=== PATIENT | male | born 1985 | race Caucasian/White ===

== ENCOUNTER 2017-10-09 08:26 | Emergency (ER) | payer MEDICAID, SELFPAY ==
[2017-10-09 08:26] VITALS: BP 142/80; PULSE 104; RESP 16; TEMP 36.7; O2SAT 100; BMI 20.3
--- NOTE | 2017-10-09 08:46 | ED.RN ---
n/v over the last couple of weeks but not today.
[2017-10-09] MEDS: Ibuprofen 600 MG Tablet PO (08:51)
--- NOTE | 2017-10-09 08:58 | ED.DCSUM_ITS ---
- ER Visit Summary Date of Service: 10/09/17 Chief Complaint: Intermittent right-sided abdominal pain for 2-3 weeks History of Present Illness: The patient is a 32 M who presents with intermittent right-sided abdominal pain for the past 2-3 weeks. He denies any precipitant, alleviating or exacerbating factors. He denies fever, chills night sweats. He does report a 3 pound weight loss over the past month. The weight loss is unintentional. There is been no change in his routine. He denies any myalgias arthralgias or bone pain. He denies headache, photophobia or any ocular, visual or auditory symptoms. He denies trouble speech or swallowing. He denies any cardiac or respiratory symptoms. He is complained of intermittent nausea. He denies any back pain or flank pain. He denies dysuria, frequency, urgency or hematuria. Denies any scrotal or testicular pain. He denies evidence of a bulge or hernia. Upon further questioning was determined that his pain is worse after he stands for hours. He also reported diarrhea 2 weeks ago for 24 hours. There is no blood or mucus. There is a family history of inflammatory bowel disorder. He denies any skin lesions. Denies history of trauma. He is a smoker one pack per day. Physical Examination: Blood pressure is elevated 142/80. Heart rate 104. Vital signs otherwise unremarkable. Head is atraumatic normocephalic. Pupils are equal round reactive. Extraocular muscles are intact. TMs are pearly white with landmarks noted. Nares patent with no drainage. Posterior pharynx without erythema or exudate. Uvula is midline. There is no dysphonia or dysphasia. Trachea is midline. There is no stridor with auscultation of the neck. Heart is regular without murmur, gallop or rub. S1 and S2 are normal. Lungs are clear to auscultation with good movement of air bilaterally. Abdomen is soft and nontender. There is no guarding or peritoneal findings. There is no palpable pulsatile mass. There is no abdominal bruit. Snow sign is negative. Negative Rovsing sign. There is no evidence of inguinal or umbilical hernia. There is no CVA tenderness either side. He is alert oriented with a nonfocal neurologic exam. There is no swelling or edema of the lower extremities. Test Results: BC is remarkable for H&H 9.3 and 29.8. Electrolyte panel reveals slight decrease in potassium at 3.3. BUN/creatinine are normal. Emergency Department Course and Treatment: To evaluate patient's intermittent right-sided abdominal pain with history of weight loss and family history of inflammatory bowel disorder a BMP, CBC and UA were obtained. Treatment Plan: Because patient has unintentional weight loss with abdominal pain and anemia of unknown cause a CT of the abdomen was obtained to evaluate his discomfort and specifically to evaluate for neoplasm. CT reveals a 2 mm renal calculus that would not explain his pain and significant amount of fecal stasis. This may explain his pain but would not explain his unintentional weight loss or anemia. Disposition: Discharged to home with follow-up in 1 week with PCP Impression: 1. Right-sided abdominal pain unknown etiology 2. Anemia unknown etiology 3. Unintentional weight loss unknown etiology 4. Tobacco use This note was generated with [employer] software. It may contain incorrect words, spelling, and punctuation that were not noted in review of the chart prior to signing ED Disposition - Plan for ED Patient: Disposition: Home or Assisted Living Chief Complaint: Flank Pain Instructions: ED Abdominal Pain Unkn Cause Male, ED Anemia Type Not Specified Referrals: Edward Osman DO [STAFF PHYSICIAN] - 1 Week
[2017-10-09 09:03] LABS: Bacteria 0 SEEN /hpf (None Seen); Red Blood Cells-Urine 0 SEEN /hpf (0-5); Squamous Epithelial Cells - UA 0 SEEN /hpf (0-5)
[2017-10-09 09:10] LABS: Absolute Lymphocyte Count 1.31 X10^3/ul (0.83-4.51); Absolute Neutrophil Count 3.9 X10^3/uL (2.0-7.7); Basophil# 0.05 X10^3/uL; Basophil% 0.8 % (0-1); Eosinophil# 0.07 X10^3/uL; Eosinophils% 1.2 % (0-5); Hematocrit 29.8 % (40-54); Hemoglobin 9.3 g/dl (13.0-16.5); Lymphocyte # 1.31 X10^3/ul (4.0); Lymphocyte % 21.9 % (19-41); Mean Corp Hgb Conc 31.2 g/gl (32-36); Mean Corpuscular Hgb 27.1 pg (27.0-32.0); Mean Corpuscular Volume 86.9 fL (80-94); Mean Platelet Vol. 9.7 fl (6.2-12.0); Monocyte% 10.1 % (0-10); Neutrophil # 3.93 X10^3/uL (2.7-7.7); Neutrophil % 65.8 % (47-70); Platelet Count 390 K/mm3 (150-450); RBC Distribution Width CV 13.6 % (11.6-14.6); RBC Distribution Width SD 42.2 fl (35.1-43.9); Red Blood Count 3.43 M/mm3 (4.6-6.2)
[2017-10-09 09:12] LABS: POSITIVE COUNT NO; POSITIVE DIFFERENTIAL NO; POSITIVE MORPHOLOGY NO
[2017-10-09 09:17] LABS: Anion Gap 7 (5-15); BUN 10 mg/dL (7-18); BUN/Creat Ratio 12.2 RATIO (10-20); Calcium,Total 8.5 mg/dL (8.5-10.1); Chloride 108 mmol/L (98-107); Creatinine, Serum 0.82 mg/dL (0.70-1.30); EST Glomerular Filtration Rate 114 mL/min (>60); Est Glom Filt Rate - Afr Amer 138 mL/min (>60); Estimated Creatinine Clearance 123.31 ml/min; Glucose 86 mg/dL (74-106); Potassium 3.3 mmol/L (3.5-5.1); Sodium Level 143 mmol/L (136-145)
--- NOTE | 2017-10-09 09:23 | CT_ITS ---
STUDY: CT ABDOMEN AND PELVIS WITH CONTRAST REASON FOR EXAM: Male, 32 years old. 2 week history of right flank pain with weight loss and anemia. RADIATION DOSAGE (If Supplied By Facility): CTDIvol = ( 10.87 ) mGy, DLP = ( 417.06 ) mGycm TECHNIQUE: Transaxial images were obtained from the dome of the diaphragm to the symphysis pubis without oral contrast. 100 ml of Isovue 300 contrast was administered. Sagittal and coronal images were reconstructed. Individualized dose optimization techniques were used for this CT. COMPARISON: None. FINDINGS: The visualized lung bases are unremarkable. The visualized portions of the heart are within normal limits. Normal liver. The gallbladder is contracted. Normal spleen. Normal pancreas. Normal bilateral adrenal glands. 2 mm calculus in the upper pole calyx of the right kidney. Normal left kidney. Large amount of residual food particles seen within the stomach. Normal small intestine. Large amount of fecal material is seen in the colon. The appendix is visualized and appears normal. Normal abdominal aorta. Normal inferior vena cava. Normal retroperitoneum. Normal urinary bladder. Normal abdominal wall. Normal osseous structures. CT/Abdomen/Pelvis W IV Cont ONLY IMPRESSION: 2 mm calculus in the upper pole calyx of the right kidney. Large amount of fecal material is seen throughout the colon. Electronically Signed: Neil Edgar MD at 10:33 EDT Tel [phone], Service support ,
[2017-10-09 09:34] LABS: Color, Urine Yellow (Yellow); Glucose, Dipstick Normal (Normal); Ketone-Dipstick 5 mg/dl (Negative); Leukocyte Esterase-Dipstick 100 /ul (Negative); Nitrite-Dipstick Negative (Negative); Occult Blood-Urine Negative /ul (Negative); Protein-Dipstick 30 mg/dl (Negative); Specific Gravity, Urine 1.025 (1.002-1.030); Urine Bilirubin Dipstick Negative (Negative); Urine Clarity Sl. Cloudy (Clear); Urine Urobilinogen 1 mg/dl (Normal)
[2017-10-09 09:35] LABS: White Blood Cells 5-10 SEEN /hpf (0-5)
[2017-10-09 09:36] LABS: Mucous, Urine RARE /hpf (<or=2+)
[2017-10-09 10:30] VITALS: BP 145/73; PULSE 92; RESP 14; O2SAT 98
[2017-10-09 11:14] VITALS: BP 122/76; PULSE 59; RESP 18; O2SAT 98
== END 2017-10-09 11:15 | disposition home or self-care (01) ==
PROVIDERS: Emergency Provider Emergency Medicine; Family Provider Family Medicine; PCP Family Medicine
DX: R10.9 Unspecified abdominal pain (principal); D64.9 Anemia, unspecified; R63.4 Abnormal weight loss; Z72.0 Tobacco use; N20.0 Calculus of kidney
CPT/HCPCS: 74177; 80048; 81001; 85025; 99284; Q9967; A4216

== ENCOUNTER 2018-09-14 09:36 | Emergency (ER) | payer SELFPAY ==
[2018-09-14 09:37] VITALS: BP 143/70; PULSE 97; RESP 17; TEMP 36.5; O2SAT 99; BMI 21.2
--- NOTE | 2018-09-14 09:44 | RAD_ITS ---
STUDY: X-RAY - LEFT SHOULDER REASON FOR EXAM: Male, 33 years old. Pain TECHNIQUE: 4 view(s) of the shoulder. COMPARISON: None. FINDINGS: There is no evidence of fracture or dislocation. There are no significant degenerative changes. There are no radiodense foreign bodies. RAD/Shoulder min 2 Views IMPRESSION: No fracture or dislocation. Electronically Signed: Ant Harrington, at 10:24 EDT Tel , Service support ,
--- NOTE | 2018-09-14 09:56 | ED.VISSUMM ---
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 through repetitive motions with his left upper extremity indicates he has pain over the anterior left shoulder, he suffered no direct trauma he has no numbness weakness paresthesias, he has no symptoms of joint pain or other complaints, he indicates his pain is worse when he tries to forward elevate but when he actually gets the arm up he actually feels better, he has no numbness weakness or paresthesias no direct trauma no prior history no other complaints Physical Examination: [] Total signs are within normal range General, no distress resting comfortably HEENT is generally unremarkable The neck is supple no adenopathy Cardiovascular, regular rate and rhythm Lungs, clear bilateral Abdomen, soft nontender Extremities, no clubbing cyanosis or edema he has near full range of motion of the left upper extremity to full forward elevation he has some discomfort his pain is over the anterior shoulder AC joint region as well, there is no instability deformity or warmth there is no signs of any acute abnormality, his humerus elbow forearm hand and wrist and hand function are fully normal with normal strength sensation pulses the right upper extremities unremarkable the C-spine lumbar spine is unremarkable as is the rest of his exam Neurologic, awake alert answering questions appropriately moving all 4 extremities Test Results: [] Emergency Department Course and Treatment: [] Given all the above and x-rays obtained explained to him the concept of rotator cuff injury other occult injuries he understands, the x-rays unremarkable, he will be treated with nonsteroidals sling he does not have an orthopedic surgeon he is referred to Dr. Hsieh on-call for orthopedics he will rest the arm avoid repetitive activities and follow-up with those physicians and return for change in symptoms Treatment Plan: [] Disposition: [] Home stable Impression: [] Shoulder injury possible occult injury This note was generated with [employer] dictation software. It may contain incorrect words, spelling, and punctuation that were not noted in review of the chart prior to signing ED Disposition - Plan for ED Patient: Referrals: Brandon Mitchell MD [Primary Care Provider] -
--- NOTE | 2018-09-14 09:59 | ED.DCSUM_ITS ---
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 through repetitive motions with his left upper extremity indicates he has pain over the anterior left shoulder, he suffered no direct trauma he has no numbness weakness paresthesias, he has no symptoms of joint pain or other complaints, he indicates his pain is worse when he tries to forward elevate but when he actually gets the arm up he actually feels better, he has no numbness weakness or paresthesias no direct trauma no prior history no other complaints Physical Examination: [] Total signs are within normal range General, no distress resting comfortably HEENT is generally unremarkable The neck is supple no adenopathy Cardiovascular, regular rate and rhythm Lungs, clear bilateral Abdomen, soft nontender Extremities, no clubbing cyanosis or edema he has near full range of motion of the left upper extremity to full forward elevation he has some discomfort his pain is over the anterior shoulder AC joint region as well, there is no instability deformity or warmth there is no signs of any acute abnormality, his humerus elbow forearm hand and wrist and hand function are fully normal with normal strength sensation pulses the right upper extremities unremarkable the C- spine lumbar spine is unremarkable as is the rest of his exam Neurologic, awake alert answering questions appropriately moving all 4 extremities Test Results: [] Emergency Department Course and Treatment: [] Given all the above and x-rays obtained explained to him the concept of rotator cuff injury other occult injuries he understands, the x-rays unremarkable, he will be treated with nonsteroidals sling he does not have an orthopedic surgeon he is referred to Dr. Hsieh on-call for orthopedics he will rest the arm avoid repetitive activities and follow-up with those physicians and return for change in symptoms Treatment Plan: [] Disposition: [] Home stable Impression: [] Shoulder injury possible occult injury This note was generated with [email or web address] dictation software. It may contain incorrect words, spelling, and punctuation that were not noted in review of the chart prior to signing ED Disposition - Plan for ED Patient: Referrals: Brandon Mitchell MD [Primary Care Provider] -
--- NOTE | 2018-09-14 09:59 | ED.DEP ---
ED Disposition - Plan for ED Patient: Instructions: ED Torn Rotator Cuff, ED Tendinitis Rotator Cuff, ED Sprain Shoulder Prescriptions: Naproxen [Naprosyn] 500 mg PO BID PRN #20 tab Referrals: Brandon Mitchell MD [Primary Care Provider] - Mo Hsieh DO [STAFF PHYSICIAN] -
[2018-09-14] MEDS: Naproxen 500 MG Tablet PO (10:09)
== END 2018-09-14 10:45 | disposition home or self-care (01) ==
LOC: ED 10:00
PROVIDERS: Emergency Provider Emergency Medicine; Family Provider Family Medicine; PCP Family Medicine
DX: S49.92XA Unspecified injury of left shoulder and upper arm, initial encounter (principal); X50.3XXA Overexertion from repetitive movements, initial encounter; Y93.9 Activity, unspecified; Y92.89 Other specified places as the place of occurrence of the external cause; Y99.0 Civilian activity done for income or pay
CPT/HCPCS: 73030; 99283

== ENCOUNTER 2018-10-15 12:43 | Emergency (ER) | payer OTHER, SELFPAY ==
[2018-10-15 12:44] VITALS: BP 140/86; PULSE 95; RESP 17; TEMP 36.8; O2SAT 100; BMI 21.6
--- NOTE | 2018-10-15 13:02 | CT_ITS ---
STUDY: CT BRAIN WITHOUT CONTRAST REASON FOR EXAM: Male, 33 years old. Trauma RADIATION DOSAGE (If Supplied By Facility): CTDIvol = ( 44.99 ) mGy, DLP = ( 779.24 ) mGycm TECHNIQUE: Transaxial CT imaging of the brain was performed without administration of intravenous contrast material. Individualized dose optimization techniques were used for this CT. COMPARISON: No relevant priors. FINDINGS: Normal soft tissue structures. Normal calvarium. There is a right lateral scalp soft tissue hematoma. Normal size ventricles and extra-axial spaces for the patient's age. Normal white matter tracts of the cerebral hemispheres. Normal basal ganglia and thalami. Normal brainstem. Normal cerebellum. There is no intracranial hemorrhage. There are no findings of an acute ischemic infarction. Normal visualized paranasal sinuses. CT/Brain/Head without Contrast IMPRESSION: No intracranial hemorrhage. The calvarium is intact. Right lateral scalp soft tissue hematoma. Electronically Signed: Addis Claros, at 13:48 EDT Tel , Service support ,
[2018-10-15] MEDS: Lidocaine/Epi/Tetracaine 50 ML 1 APPLIC TOPICAL (13:59)
--- NOTE | 2018-10-15 14:41 | ED.DCSUM_ITS ---
- ER Visit Summary Date of Service: 10/15/18 Chief Complaint: Head injury History of Present Illness: The patient is a 33 M who was at work today when his head was struck with a tow motor striking the other side of the head and to wooden pallets. No loss of conscious. He notes a mild headache. No nausea vomiting. Last tetanus was under 5 years ago. Physical Examination: Afebrile vital signs stable Gen: Well-nourished well-developed Head: Normocephalic large hematoma on the right parietal region. There is a 4 cm laceration to the posterior auricular area Eyes: Perrl EOMI ENT: TMs clear no rhinorrhea moist mucous membranes Neck: Supple no lymphadenopathy no JVD nontender CVS: Regular rate rhythm no murmurs normal S1-S2 Respiratory: No distress clear to auscultation bilaterally chest nontender Abdomen: Soft nontender nondistended normal bowel sounds no masses Back: Nontender Extremity: Nontender no edema Skin: Normal color no rash Neuro: alert orientated ?3 CN II-XII intact normal strength sensation reflexes gait cerebellar Psych: Normal affect normal mood Test Results: CT brain was negative for intracranial injury Emergency Department Course and Treatment: Wound was locally anesthetized using let and then later 1% lidocaine. Wound was washed with Shur-Clens explored and closed using a total of 9 interrupted 5-0 Ethilon sutures. Received Motrin for headache. Wound care discussed with patient. Stitches need to be removed 5 to 7 days Impression: 1. Scalp hematoma 2. 4 cm scalp laceration with repair This note was generated with [employer] dictation software. It may contain incorrect words, spelling, and punctuation that were not noted in review of the chart prior to signing ED Disposition - Plan for ED Patient: Disposition: Home or Assisted Living Instructions: ED Head Injury Closed, ED Laceration Scalp Stitch Or Stap Referrals: Brandon Mitchell MD [Primary Care Provider] - 7 Days for suture removal
[2018-10-15 14:57] VITALS: BP 131/84; PULSE 81; RESP 19; O2SAT 99
[2018-10-15] MEDS: Ibuprofen 600 MG Tablet PO (14:57)
== END 2018-10-15 14:58 | disposition home or self-care (01) ==
PROVIDERS: Emergency Provider Emergency Medicine; Family Provider Family Medicine; PCP Family Medicine
DX: S01.01XA Laceration without foreign body of scalp, initial encounter (principal); W31.89XA Contact with other specified machinery, initial encounter; Y93.89 Activity, other specified; Y92.89 Other specified places as the place of occurrence of the external cause; Y99.0 Civilian activity done for income or pay; Z72.0 Tobacco use
CPT/HCPCS: 12002; 70450; 99284

== ENCOUNTER 2018-10-22 08:30 | Emergency (ER) | payer SELFPAY ==
[2018-10-22 08:31] VITALS: BP 134/74; PULSE 81; RESP 18; TEMP 36.7; O2SAT 100; BMI 21.6
--- NOTE | 2018-10-22 08:42 | RAD_ITS ---
STUDY: X-RAY - LEFT HAND, ATTENTION INDEX FINGER REASON FOR EXAM: Male, 33 years old. Nail through finger. TECHNIQUE: 3 view(s) of the finger were obtained. COMPARISON: None. FINDINGS: Normal metacarpal head. Normal metacarpophalangeal joint. Normal proximal phalanx. Normal middle phalanx. Normal distal phalanx. Normal proximal interphalangeal joint. Normal distal interphalangeal joint. A 5.9 cm metallic nail is seen within the soft tissues overlying the distal portion of the proximal phalanx of the index finger. The point of the nail is seen along the dorsal aspect and the head of the nail is in the ventral portion. RAD/Finger(s) Min 2 Views IMPRESSION: Metallic nail in the soft tissues overlying the distal portion of the proximal phalanx of the index finger. No bony abnormality is seen. Electronically Signed: Neil Edgar, at 9:05 EDT , Service support ,
[2018-10-22] MEDS: Bupivacaine Mpf 0.5% 30 ML VIAL INFILT (09:37)
--- NOTE | 2018-10-22 09:50 | ED.VISSUMM ---
- ER Visit Summary Date of Service: 10/22/18 Chief Complaint: Nail through finger History of Present Illness: The patient is a [address] Mitchell. He is right-hand dominant. His tetanus is up-to-date. Reports that he was using a nail gun and believes he had a knot and the nail bounced and went through his left index finger. He has an aching pain is 9 out of 10 at worst and 6 out of 10 currently. Is worsened by movement relieved by rest. He denies any paresthesias distally. Physical Examination: Vitals: Stable. Afebrile. General: Well-nourished and well-developed. Head: Normocephalic atraumatic. Neck: Supple, no lymphadenopathy. No JVD. Nontender. Cardiovascular: Regular rate and rhythm. No murmurs. Respiratory: No respiratory distress. Clear to auscultation bilaterally. Abdominal: Soft, nontender, nondistended, normal bowel sounds. No guarding, rebound, or peritoneal signs. Back: Nontender. Extremities: There is a nail that enters the lateral side of the proximal phalanx of his left index finger and exits on the medial side of this. He is neurovascularly intact distally. He has normal sensation to light touch. There is no bleeding. Skin: Normal color, no rash. Neurologic: Alert and oriented ?3. Cranial nerves II through XII are intact. Normal strength and sensation. Psych: Normal affect. Test Results: X-ray shows no bony involvement. Emergency Department Course and Treatment: Patient was given Keflex p.o. He had a digital block performed and this was removed. He tolerated it well. The wound was cleansed, irrigated, and dressed. Treatment Plan: Patient will be discharged with Keflex and [place]. Instructed follow-up Dr. Pal in 2 days for a wound check. Return to the emergency department for any worsening symptoms. Disposition: To home in improved and stable condition. Impression: 1. Nail through left index finger, removed. This note was generated with [employer] software. It may contain incorrect words, spelling, and punctuation that were not noted in review of the chart prior to signing ED Disposition - Plan for ED Patient: Instructions: ED Removal Nail Prescriptions: Hydrocodone Bitart/Apap 5-325 [[place] 5MG-325MG] 1 tablet PO Q4H PRN PRN 2 Days #10 tablet PRN Reason: Pain Cephalexin [Keflex] 500 mg PO Q6 #28 capsule Referrals: Jyoti Pal DO [STAFF PHYSICIAN] - 2 Days for wound check
--- NOTE | 2018-10-22 09:53 | ED.DCSUM_ITS ---
- ER Visit Summary Date of Service: 10/22/18 Chief Complaint: Nail through finger History of Present Illness: The patient is a [address] Mitchell. He is right-hand dominant. His tetanus is up-to-date. Reports that he was using a nail gun and believes he had a knot and the nail bounced and went through his left index finger. He has an aching pain is 9 out of 10 at worst and 6 out of 10 currently. Is worsened by movement relieved by rest. He denies any paresthesias distally. Physical Examination: Vitals: Stable. Afebrile. General: Well-nourished and well-developed. Head: Normocephalic atraumatic. Neck: Supple, no lymphadenopathy. No JVD. Nontender. Cardiovascular: Regular rate and rhythm. No murmurs. Respiratory: No respiratory distress. Clear to auscultation bilaterally. Abdominal: Soft, nontender, nondistended, normal bowel sounds. No guarding, rebound, or peritoneal signs. Back: Nontender. Extremities: There is a nail that enters the lateral side of the proximal phalanx of his left index finger and exits on the medial side of this. He is neurovascularly intact distally. He has normal sensation to light touch. There is no bleeding. Skin: Normal color, no rash. Neurologic: Alert and oriented ?3. Cranial nerves II through XII are intact. Normal strength and sensation. Psych: Normal affect. Test Results: X-ray shows no bony involvement. Emergency Department Course and Treatment: Patient was given Keflex p.o. He had a digital block performed and this was removed. He tolerated it well. The wound was cleansed, irrigated, and dressed. Treatment Plan: Patient will be discharged with Keflex and [place]. Instructed follow-up Dr. Pal in 2 days for a wound check. Return to the emergency department for any worsening symptoms. Disposition: To home in improved and stable condition. Impression: 1. Nail through left index finger, removed. This note was generated with [employer] software. It may contain incorrect words, spelling, and punctuation that were not noted in review of the chart prior to signing ED Disposition - Plan for ED Patient: Instructions: ED Removal Nail Prescriptions: Hydrocodone Bitart/Apap 5-325 [[place] 5MG-325MG] 1 tablet PO Q4H PRN PRN 2 Days #10 tablet PRN Reason: Pain Cephalexin [Keflex] 500 mg PO Q6 #28 capsule Referrals: Jyoti Pal DO [STAFF PHYSICIAN] - 2 Days for wound check
[2018-10-22] MEDS: Cephalexin 500 MG Capsule PO (09:56)
== END 2018-10-22 10:04 | disposition home or self-care (01) ==
PROVIDERS: Emergency Provider Emergency Medicine; Family Provider Family Medicine; PCP Family Medicine
DX: S61.241A Puncture wound with foreign body of left index finger without damage to nail, initial encounter (principal); W29.4XXA Contact with nail gun, initial encounter; F17.210 Nicotine dependence, cigarettes, uncomplicated; W45.0XXA Nail entering through skin, initial encounter
CPT/HCPCS: 73140; 99284

== ENCOUNTER 2018-12-17 19:33 | Emergency (ER) | payer SELFPAY ==
[2018-12-17 19:34] VITALS: BP 120/87; PULSE 69; PULSE 71; RESP 17; RESP 18; TEMP 36.4; O2SAT 100; BMI 20.9
[2018-12-17 20:32] LABS: Absolute Lymphocyte Count 1.84 X10^3/uL (0.83-4.51); Basophil# 0.06 X10^3/uL; Basophil% 0.8 % (0-1); Eosinophil# 0.15 X10^3/uL; Hematocrit 41.7 % (40-54); Hemoglobin 13.5 g/dL (13.0-16.5); Lymphocyte # 1.84 X10^3/ul (4.0); Lymphocyte % 24.3 % (19-41); Mean Corp Hgb Conc 32.4 g/dL (32-36); Mean Corpuscular Hgb 30.4 pg (27.0-32.0); Mean Corpuscular Volume 93.9 fL (80-94); Mean Platelet Vol. 10.7 fl (6.2-12.0); Monocyte# 0.57 X10^3/uL; Monocyte% 7.5 % (0-10); NRBC Flagged by Analyzer 0 % (0-5); Neutrophil # 4.95 X10^3/uL (2.7-7.7); Neutrophil % 65.3 % (47-70); Platelet Count 231 K/mm3 (150-450); RBC Distribution Width CV 12.2 % (11.6-14.6); RBC Distribution Width SD 42.3 fl (35.1-43.9); Red Blood Count 4.44 M/mm3 (4.6-6.2); White Blood Count 7.6 K/mm3 (4.4-11.0)
[2018-12-17 20:44] LABS: Anion Gap 5 (5-15); BUN 15 mg/dL (7-18); BUN/Creat Ratio 16.7 RATIO (10-20); Calcium,Total 8.6 mg/dL (8.5-10.1); Chloride 110 mmol/L (98-107); EST Glomerular Filtration Rate 103 mL/min (>60); Est Glom Filt Rate - Afr Amer 124 mL/min (>60); Estimated Creatinine Clearance 114.67 ml/min; Glucose 67 mg/dL (74-106); Potassium 3.9 mmol/L (3.5-5.1); Sodium Level 145 mmol/L (136-145)
--- NOTE | 2018-12-17 21:05 | ED.DCSUM_ITS ---
- ER Visit Summary Date of Service: 12/17/18 Chief Complaint: [Paresthesias ] History of Present Illness: The patient is a 33 M [presents to the emergency department with numbness and tingling in both hands and both feet. Symptoms have been continuous. Patient states that the hands are actually feeling a little bit better but the feet are still quite numb and tingly. Denies any headache. He denies any injury to his neck or back. He denies any recent illness. He has had no fevers. Patient never had symptoms like this before. Patient does not have a diabetes history.] Physical Examination: [HEENT-PERRLA, EOMI. Cranial nerves II through XII grossly intact. TMs clear. Mucous membranes moist. No adenopathy. Cardiovascular-regular rate and rhythm without murmur or ectopy Lungs-clear to auscultation, chest wall stable without crepitus or subcu emphysema Abdomen-normoactive bowel sounds, soft, nontender, no rebound or rigidity, no peritoneal signs. Neuro usuh-[id number]-nose and heel glass testing within normal limits, negative Romberg, negative , Fundi benign. Deep tendon reflexes are plus 2 out of 4 bilaterally in the upper and lower extremities. Extremities-intact ?4, normal range of motion, normal pulses, atraumatic] Test Results: [CBC with differential obtained showing a 7.6, hemoglobin 13, hematocrit 42, platelets 231. Chemistries unremarkable. Magnesium was 2.0.] Emergency Department Course and Treatment: [] Treatment Plan: [Patient to follow-up with his primary care physician within next 3 to 5 days. Etiology of his paresthesias is unclear at this time. We discussed possibilities such as multiple sclerosis which may need further investigating and imaging such as MRI.] Disposition: [Discharged home in stable condition] Impression: [Paresthesias-etiology uncertain] This note was generated with [employer]ation software. It may contain incorrect words, spelling, and punctuation that were not noted in review of the chart prior to signing ED Disposition - Plan for ED Patient: Referrals: Brandon Mitchell MD [Primary Care Provider] -
--- NOTE | 2018-12-17 21:10 | ED.DEP ---
ED Disposition - Plan for ED Patient: Instructions: Paraesthesias Referrals: Brandon Mitchell MD [Primary Care Provider] - 3-5 Days
== END 2018-12-17 21:26 | disposition home or self-care (01) ==
LOC: ED 20:09
PROVIDERS: Emergency Provider Emergency Medicine; Family Provider Family Medicine; PCP Family Medicine
DX: R20.2 Paresthesia of skin (principal); Z72.0 Tobacco use
CPT/HCPCS: 80048; 83735; 85025; 99283; A4216

== ENCOUNTER 2019-01-11 01:06 | Emergency (ER) | payer SELFPAY ==
[2019-01-11 01:07] VITALS: BP 136/102; PULSE 73; RESP 15; TEMP 36.8; O2SAT 100; BMI 20.3
--- NOTE | 2019-01-11 01:16 | ED.DCSUM_ITS ---
- ER Visit Summary Date of Service: 01/11/19 Chief Complaint: Left third finger pain History of Present Illness: The patient is a 33 M who has pain on his left third finger. He also noticed some swelling. He states that he was pulling weeds 4 days ago and after this started to hurt. He denies any foreign bodies. He has noted some drainage on the palm side of his third finger. He tried a topical antibiotic cream without any relief. He denies any fevers. He is still able to move the finger without any pain but does have some minimal pain. Physical Examination: Vital signs reviewed. Left hand exam reveals some erythema and swelling of the third finger. He is not holding it in flexion. There is no pain over the flexor tendon. There is some drainage coming from a small abscess on the palm side near the PIP joint. Test Results: None performed Emergency Department Course and Treatment: Patient does appear to have a soft tissue infection of the finger. There is an abscess that is actively draining. I do not see or appreciate any flexor tenosynovitis. He is able to move his finger without much pain. He has no pain over the flexor tendon. He will be placed on Bactrim and Keflex. I will given him naproxen for pain. He will be given orthopedic follow-up. Treatment Plan: [] Disposition: Discharge Impression: Left third finger abscess This note was generated with [employer] dictation software. It may contain incorrect words, spelling, and punctuation that were not noted in review of the chart prior to signing ED Disposition - Plan for ED Patient: Referrals: Brandon Mitchell MD [Primary Care Provider] -
--- NOTE | 2019-01-11 01:18 | ED.DEP ---
ED Disposition - Plan for ED Patient: Disposition: Home or Assisted Living Instructions: ABSCESS, Antiobiotic Treatment Only Prescriptions: Smz/Tmp Ds [Bactrim Ds] 1 tab PO BID #14 tab Prescription Printed Cephalexin [Keflex] 500 mg PO Q6 #40 cap Prescription Printed Naproxen [Naprosyn] 500 mg PO BID PRN #20 tab Prescription Printed Referrals: Brandon Mitchell MD [Primary Care Provider] -
[2019-01-11] MEDS: Smz/Tmp Ds Tablet 1 TABLET PO (01:23)
[2019-01-11] MEDS: Naproxen 500 MG Tablet PO (01:23)
[2019-01-11] MEDS: Cephalexin 250 MG Capsule 500 MG PO (01:23)
== END 2019-01-11 01:38 | disposition home or self-care (01) ==
LOC: ED 01:33
PROVIDERS: Emergency Provider Emergency Medicine; Family Provider Family Medicine; PCP Family Medicine
DX: L02.512 Cutaneous abscess of left hand (principal); Z72.0 Tobacco use
CPT/HCPCS: 99283